=== PATIENT | female | born 1980 | race Caucasian/White ===

== ENCOUNTER 2016-04-30 14:33 | Emergency (ER) | payer OTHER ==
[~2016-04-30] VITALS: Ht 163.2 cm; Wt 106.9 kg
[~2016-04-30 14:33] MED LIST: ACET-1256 PO; ALBU1AER9 INH; IBUP-1050 PO; MULT-506 PO; NZRCR TOP; RANI300T PO; ULT/50 PO
[2016-04-30 14:36] VITALS: TEMP 36.7; Ht 163.2 cm; Wt 106.9 kg
[2016-04-30] MEDS ORDERED: OSELTAMIVIR PHOSPHATE 75 MG CAP PO STA (15:08)
[2016-04-30] MEDS ORDERED: OSEL75CA12 PO (15:20)
[2016-04-30] MEDS ORDERED: ONDA4TAB10 SL (15:20)
[2016-04-30 15:38] VITALS: BP 101/90; PULSE 87; O2SAT 100
--- NOTE | 2016-05-01 17:35 | EMERGENCY ROOM VISIT NOTE ---
History First contact with patient: 15:03 Chief Complaint: ILLNESS Stated Complaint: SICK History of Present Illness The patient is a 35 year old female who presents to the Emergency Room with complaints of fever and coughing for the past 2 days. The patient states that she has had posttussive emesis, and feels quite nauseated. The patient lives with her mother, and mother was diagnosed a few days ago with a positive influenza B here at this department. The patient has had some improvement of her aches with litr-iow-fezqtro ibuprofen and Tylenol. She does not have a productive cough. No chest pain or chest tightness. No chance of . She rates her discomfort an 8/10. Review of Systems More than 10 systems were reviewed and otherwise negative with the exception of history of present illness. Past Medical/Surgical History Medical Problems: (1) Ectopic (2) MIGRAINE UNSPECIFIED W/O INTRACTABLE MIGRAINE (3) TOBACCO USE DISORDER Family History Kidney stone Social History Smoking Status: Never Smoker Alcohol Use: none Drug Use: none Marital Status: Housing Status: lives with family Occupation Status: employed Current/Historical Medications Scheduled Ketoconazole (Ketoconazole), 1 APPLN TOP BID Multivitamin (Multivitamin), 1 TAB PO DAILY Ondasetron Odt (Zofran Odt), 4 MG SL Q6H Oseltamivir (Tamiflu), 75 MG PO BID Ranitidine Hcl (Zantac), 300 MG PO HS Allergies Coded Allergies: Penicillins (Verified Allergy, Severe, ANAPHYLAXIS, 04/30/16) Physical Exam Vital Signs Date Time Temp Pulse Resp B/P Pulse Ox O2 Delivery O2 Flow Rate FiO2 04/30/16 15:38 87 14 101/90 100 04/30/16 14:36 36.7 79 17 131/92 95 Room Air Physical Exam VITALS: Vitals are noted on the nurse's note and reviewed by myself. Vital signs stable. GENERAL: Well-developed, well-nourished, white female who appears ill but nontoxic. HEAD: Normocephalic atraumatic. EARS: External ear normal. External auditory canals clear, tympanic membranes pearly armenta without erythema or effusion bilaterally. EYES: Pupils equal round and reactive to light and accommodation. Conjunctivae without injection, sclerae without icterus. Extraocular movements intact. NOSE: Patent, turbinates without inflammation or discharge. MOUTH: Mucous membranes moist. Tonsils are not enlarged. Pharynx without erythema, blood, or exudate. Uvula midline. Airway patent. NECK: Supple without nuchal rigidity. No lymphadenopathy. No thyromegaly. Cervical spine is nontender. HEART: Regular rate and rhythm without murmurs gallops or rubs. LUNGS: Clear to auscultation bilaterally without wheezes, rales or rhonchi. No retractions or accessory muscle use. ABDOMEN: Positive normal bowel sounds x 4. Soft, nontender, without masses or organomegaly. No guarding or rebound tenderness. MUSCULOSKELETAL: No muscle atrophy, erythema, or edema noted. Full range of motion without joint tenderness in all extremities. Medical Decision & Procedures Medications Administered Medications (Trade) Dose Ordered Sig/Paloma Route Start Time Stop Time Status Last Admin Dose Admin Oseltamivir Phosphate (Tamiflu Cap) 75 mg NOW STAT PO 04/30/16 15:08 04/30/16 15:09 DC 04/30/16 15:37 75 MG ED Course Physical exam and history were performed. Nursing notes and EMR were reviewed. Patient appears to have flulike symptoms with exposure to a positive influenza B household member. Clinically the patient does not appear toxic. She appears to be within the window for Tamiflu, which will be prescribed. Her first dose was provided here in the department. I will give her a continuation prescription as well as a short course of Zofran or nausea and vomiting. The patient was pleased with this and voiced understanding. She rated her discomfort a 0/10 at the time of departure. The chart was completed utilizing [employer] Speech Voice Recognition Software. Grammatical errors, random word insertions, pronoun errors, and incomplete sentences are an occasional consequence of this system due to software limitations, ambient noise, and hardware issues. Any formal questions or concerns about the content, text, or information contained within the body of this dictation should be directly addressed to the provider for clarification. . Medical Decision Differential diagnosis: Etiologies such as viral syndrome, otitis, pharyngitis, pneumonia, influenza, meningitis, urinary tract infection, sepsis, bacteremia, as well as others were entertained. Impression Primary Impression: Influenza-like illness Additional Impression: Nausea and vomiting Departure Information Dispostion Home / Self-Care Condition GOOD Prescriptions Ondasetron Odt (ZOFRAN ODT) 4 Mg Tab 4 MG SL Q6H for Nausea, #12 TAB Prov: Crow Le PA-C 04/30/16 Oseltamivir (Tamiflu) 75 Mg Cap 75 MG PO BID for 5 Days, #10 CAP Prov: Crow Le PA-C 04/30/16 Forms WORK / SCHOOL INSTRUCTIONS, HOME CARE DOCUMENTATION FORM, IMPORTANT VISIT INFORMATION Patient Instructions My [facility] Additional Instructions You were seen and evaluated today on an emergency basis only. This is not a substitute for, or an effort to provide, complete comprehensive medical care. It is not possible to recognize and treat all injuries or illnesses in a single emergency department visit. For this reason it is recommended that you followup with your primary care physician early next week for ongoing care and evaluation. Call tomorrow to make your appointment. For baseline pain relief you may alternate ibuprofen and acetaminophen every 4 hours for pain control. Take 600 mg ibuprofen (Advil) and then 4 hours later take 1000 mg acetaminophen (Tylenol). Do not take more than 3000 mg acetaminophen in a single day. Take Tamiflu 75 mg twice daily for the next 5 days. Zofran 1 tablet every 6 hrs as needed for nausea. You are welcome to return to the emergency department anytime with new, worsening, or concerning symptoms. Problem Qualifiers
== END 2016-04-30 15:40 | disposition home or self-care (01) ==
LOC: C.EDB 14:35 → C.EDC 15:40
DX: R11.2 Nausea with vomiting, unspecified (principal); R68.89 Other general symptoms and signs; G43.909 Migraine, unspecified, not intractable, without status migrainosus; Z79.899 Other long term (current) drug therapy; Z87.891 Personal history of nicotine dependence

== ENCOUNTER → 2016-07-20 | Outpatient (CLI) | payer OTHER ==
[~2016-07-20] MED LIST changes: -ACET-1256 PO; -ALBU1AER9 INH; -IBUP-1050 PO; +ONDA4TAB10 SL; -ULT/50 PO
== END | disposition home or self-care (01) ==
LOC: C.PAPS 16:18
PROVIDERS: ATTEND Obstetrics & Gynecology
DX: Z01.419 Encounter for gynecological examination (general) (routine) without abnormal findings (principal)

== ENCOUNTER → 2016-11-11 | Outpatient (CLI) | payer OTHER ==
[~2016-11-11] MED LIST changes: -ONDA4TAB10 SL
[2016-11-11 15:45] LABS: BASO % 0.4 %; BASO ABS # 0.04 K/uL (0-0.2); COMPLETE YES; EOS % 1.4 %; HEMATOCRIT 42.4 % (37-47); IG% 0.3 %; LYMPH % 20.9 %; LYMPH ABS # 2.04 K/uL (1.2-3.4); MEAN CELL VOLUME 85.3 fL (80-100); MEAN CORPUSCULAR HGB CONC 32.8 g/dl (32-36); PLATELET COUNT 253 K/uL (130-400); RED BLOOD COUNT 4.97 M/uL (4.2-5.4); WHITE BLOOD COUNT 9.74 K/uL (4.8-10.8)
== END | disposition home or self-care (01) ==
LOC: C.LAB 15:14
PROVIDERS: ATTEND Internal Medicine
DX: Z00.00 Encounter for general adult medical examination without abnormal findings (principal); R23.4 Changes in skin texture

== ENCOUNTER → 2017-01-18 | Outpatient (CLI) | payer OTHER ==
[2017-01-18 16:41] LABS: BLOOD UREA NITROGEN 9 mg/dl (7-18); BUN/CREATININE RATIO 11.2 (10-20); CALCIUM 9.4 mg/dl (8.5-10.1); CARBON DIOXIDE 26 mmol/L (21-32); CHLORIDE 106 mmol/L (98-107); CREATININE 0.81 mg/dl (0.60-1.20); GLUCOSE 83 mg/dl (70-99); POTASSIUM 3.4 mmol/L (3.5-5.1); SODIUM 141 mmol/L (136-145)
[2017-01-18 16:44] LABS: ESTIMATED AVERAGE GLUCOSE 97 mg/dl; HA1C FLAG Normal (Normal)
== END | disposition home or self-care (01) ==
LOC: C.LAB1850 14:30
PROVIDERS: ATTEND Internal Medicine
DX: R73.9 Hyperglycemia, unspecified (principal)